=== PATIENT | male | born 1980 | race Caucasian/White ===

== ENCOUNTER 2024-06-08 11:41 | Emergency (ER) | payer SELFPAY ==
[2024-06-08 11:43] VITALS: BP 178/105
[2024-06-08 14:03] LABS: Blood Urea Nitrogen 16 mg/dl (9-20); Calcium 10.4 mg/dl (8.4-10.2); Carbon Dioxide 26 mmol/L (22-30); Chloride 101 mmol/L (98-107); Glucose 99 mg/dl (70-99); Potassium 4.5 mmol/L (3.5-5.1); Sodium 140 mmol/L (135-145); eGFR > 60.00
--- NOTE | 2024-06-08 14:09 | ED.GENMED ---
History of Present Illness
General
Chief Complaint: Swelling
Time Seen by Provider: 06/08/24 13:08
History of Present Illness
History of Present Illness:
44-year-old male presents to the emergency department for evaluation of bilateral foot and ankle swelling for the past several days. He admits to recent relapse with crack cocaine as well as alcohol use over the past week. Denies any injectable
drug use at this time. His chart documents a past history of DVT but verified this with the patient, he has no history of lower extremity DVT rather what sounds like either septic pulmonary emboli or endocarditis secondary to IV drug abuse. Denies
any calf pain at this time. No recent immobilization or surgery
Past History
Past History
ED Past Medical History: None and Other (chronic right shoulder pain, has had injections, has arthritis in the joint.)
ED Past Surgical History: Orthopedic (Had calvicle 'shaved down.')
Social History
Tobacco: Non-smoker
Personal: Single
Employment: Employed
Review of Systems
Review of Systems
Allergies reviewed?: Yes
All Other Systems: ROS reviewed and negative except as documented in HPI and ROS
Phy Exam
Physical Exam
Physical Exam:
GEN: Well appearing, NAD, WDWN
HEENT: Oral mucosa moist, no scleral icterus
Cardiac: Regular rate
Lung: No respiratory distress, no tachypnea
MSK: Mild lower extremity edema involving the distal lower legs, ankles, and feet, dorsalis pedis pulses are strong. No open wounds, calf compartments are soft x 4
Skin: Good color, no pallor or jaundice, no rashes
Neuro: AO x3, moves all extremities freely
Psych: Calm, cooperative
Course
Orders/Labs/Results
Orders:
Orders
06/08/24 13:30
Basic Metabolic Panel Urgent
Abnormal Lab Results
06/08/24
13:30
Calcium 10.4 H mg/dl
(8.4-10.2)
06/08/24 13:30
Vital Signs
Initial and Last Documented VS:
Initial Vital Signs
Temp Pulse Resp BP Pulse Ox
98.5 F 110 22 178/105 100
06/08/24 11:43 06/08/24 11:43 06/08/24 11:43 06/08/24 11:43 06/08/24 11:43
Last Documented Vital Signs
Temp Pulse Resp BP Pulse Ox
98.5 F 110 22 178/105 100
06/08/24 11:43 06/08/24 11:43 06/08/24 11:43 06/08/24 11:43 06/08/24 11:43
MDM/Problems Addressed
MDM/Problems Addressed:
Likely venous stasis edema in the setting of recent alcohol and crack cocaine results. Electrolytes are reassuring, will start the patient on low-dose diuretic but encourage cessation of illicit substances. Given the symmetric bilateral
involvement and lack of other risk factors doubt DVT
*Critical Care Note
Total Time (30-74mins, 75-104mins- exclusive of procedures): Not Applicable
ED Attending Note
-
Portions of this chart may have been created with voice recognition software.� Occasional wrong word or��sound alike� substitutions may have occurred due to the inherent limitations of voice recognition software.
Discharge Plan
Departure
Patient Disposition: Home (Routine Discharge)
Date of Disposition: 06/08/24
Time of Disposition: 14:10
Patient with high blood pressure during this ER visit?: Yes
Discharge Problem:
Bilateral leg edema
Instructions: Dependent Edema (DC)
Prescriptions:
New
furosemide 20 mg tablet
20 mg PO DAILY PRN (Reason: edema) Qty: 20 0RF
Referrals:
Shivam Gonzalez, DO [Family Provider] -
Activity Restrictions/Additional Instructions:
Use the furosemide as needed for leg swelling, maximum of once per day for no more than 5 days at a time
If symptoms worsen, follow up with your primary care physician
Interventions
Interventions:
*Risk Screen - Suicide Last Done: 06/08/24 11:43
*General Assessment Last Done: 06/08/24 11:43
*Neglect/Abuse Screening Last Done: 06/08/24 11:43
ED- Fall Risk Assessment Last Done: 06/08/24 13:31
*Nursing Disposition Last Done: 06/08/24 14:32
ED- Cardiac Assessment Last Done: 06/08/24 13:31
ED- Pulmonary Assessment Last Done: 06/08/24 13:31
ED-Skin Assessment Last Done: 06/08/24 13:32
Discharge Date and Time
Discharge Date/Time: 06/08/24 14:33
Print Language: [id number]
== END 2024-06-08 14:33 | disposition home or self-care (01) ==
LOC: EMR 11:41
PROVIDERS: Physician Assistant; EMERGENCY PHYSICIAN Emergency Medicine; FAMILY PHYSICIAN Internal Medicine
DX: R60.0 Localized edema (principal); M25.572 Pain in left ankle and joints of left foot; M25.571 Pain in right ankle and joints of right foot; R03.0 Elevated blood-pressure reading, without diagnosis of hypertension; M19.90 Unspecified osteoarthritis, unspecified site; F14.10 Cocaine abuse, uncomplicated; F10.10 Alcohol abuse, uncomplicated
CPT/HCPCS: 99283; 80048

== ENCOUNTER → 2025-05-15 09:51 | Outpatient (REF) | payer BC, SELFPAY | LOC: RAD 09:51 | PROVIDERS: ATTENDING PHYSICIAN Student in an Organized Health Care Education/Training Program; FAMILY PHYSICIAN Internal Medicine | DX: I87.2 Venous insufficiency (chronic) (peripheral) (principal); I73.9 Peripheral vascular disease, unspecified | CPT/HCPCS: 93923; 93970 ==